=== PATIENT | female | born 1940 | race Caucasian/White ===

== ENCOUNTER → 2017-09-21 14:08 | Outpatient (CLI) | payer MEDICARE, OTHER ==
[~2017-09-21 14:08] MED LIST: ASPIRIN81 MG PO; ATARAX 25 MG TA25 MG PO; CO Q-10100 MG PO; CYCLOBENZAPRINE10 MG PO; DURAGESIC1 PATCH .1 TRANSDERM; EVENING PRIMROSE PO; FIORICET/ESGIC1 TAB; FIORICET/ESGIC1 TAB PO; ISOSORBIDE MONO30 M1 PO; LEVSIN/ANASP0.125 MG PO; LOVAZA1 G PO; LYRICA50 MG PO; MOBIC7.5 MG PO; MORPHINE SULFAT30 MG PO; MOVANTIK25 MG PO; NASONEX NASAL S17 GM NS; PLAVIX75 MG PO; SANTYL30 GM TP; VOLTAREN100 GM TOPICAL; XANAX1 MG PO; ZOFRAN4 MG PO
== END | disposition home or self-care (01) ==
LOC: D.US 09-15 08:00 → D.CT 09-15 09:00 → D.US 09-15 14:30 → D.CT 09-15 15:00 → D.US 14:08
DX: I65.23 Occlusion and stenosis of bilateral carotid arteries (principal)

== ENCOUNTER → 2018-06-04 14:36 | Outpatient (CLI) | payer MEDICARE, OTHER ==
[~2018-06-04 14:36] MED LIST changes: +AMITIZA24 MCG PO; +ASPIRIN325 MG PO; +DULCOLAX10 MG/SUPP RC; +FLORAJEN3 CAPS460 MG PO; +LISINOPRIL10 MG PO; +MS CONTIN15 MG PO; +MS CONTIN30 MG PO; +MULTI-DAY VITAM1 TAB PO; +PEPCID PO
== END | disposition home or self-care (01) ==
LOC: D.US 14:30
DX: M79.605 Pain in left leg (principal); M79.604 Pain in right leg

== ENCOUNTER 2018-06-10 17:05 | Inpatient (IN) | payer MEDICARE, OTHER ==
[~2018-06-10] VITALS: Ht 162.6 cm; Wt 43.5 kg
--- NOTE | ~2018-06-10 | MORECARE ---
CASE MANAGEMENT DISCHARGE SUMMARY PATIENT: HARPREET PATEL UNIT: [id number] ADM DATE: 06/10/18 AGE: 77 : 38 SEX: F ROOM/BED: D.2240 AUTHOR: CLARA,DOC PHYSICIAN: REFERRING PHYSICIAN: ZHANG HERNANDEZ MD DATE OF SERVICE: 06/12/18 Discharge Plan Patient Name: HARPREET PATEL Facility: [facility]:[place] : 1940 Planned Disposition: Inpatient Rehab Anticipated Discharge Date: 06/16/18 Discharge Date: Expected LOS: 6 Initial Reviewer: [email or web address] Initial Review Date: 06/12/2018 Generated: 06/12/18 3:39 pm Comments DCP- Discharge Planning Updated by [email or web address]: Staci John on 06/12/18 1:[address] Patient Name: HARPREET PATEL Admission Status: ER Accout number: [id number] Admission Date: 06-10-2018 : 1940 Admission Diagnosis: Attending: ZHANG HERNANDEZ Current LOS: 2 Anticipated DC Date: 06-16-2018 Planned Disposition: Inpatient Rehab Primary Insurance: MEDICARE A & B Discharge Planning Comments: CM met with patient and her friend, Maryann, to discuss discharge planning. She lives alone, is independent with all ADL's and IADL's. States she has a cane, walker, and nebulizer at home but does not currently use them. States she would like to go to inpatient rehab prior to returning home. I called Sameera in inpatient rehab and informed her. CM will continue to follow and assist with discharge planning/needs. Interlibrary Loan Specialist: Staci John DCPIA - Discharge Planning Initial Assessment Updated by [email or web address]: Staci John on 06/12/18 2:26 pm * Is the patient Alert and Oriented? Yes * How many steps to enter\exit or inside your home? 0/0 * PCP Dr. Hernandez * Pharmacy [facility] for immediate medications [facility] for maintenance medications * Preadmission Environment Home Alone * ADLs Independent * Equipment Cane Nebulizer Tub Bench Walker * List name and contact numbers for known caregivers / representatives who currently or will assist patient after discharge: Leti Solomon - friend - (medical POA) - [phone] call first Cristino Patel - son - [phone] * Verbal permission to speak to the caregivers and representatives has been obtained from the patient. Yes * Community resources currently utilized None * Additional services required to return to the preadmission environment? Yes * Can the patient safely return to the preadmission environment? No * Has this patient been hospitalized within the prior 30 days at any hospital? No Last DP export: 06/12/18 1:31 Patient Name: HARPREET PATEL Page [id number] at 1439 All edits/amendments must be made on the electronic document DICTATION DATE: 06/12/181438 REWARDS CONSULTANT: OSCAR 06/12/181438 RPT#: [id number] DC DATE: STATUS: ADM IN [facility] [address] [place] [address] END OF REPORT
--- NOTE | ~2018-06-10 | MORECARE ---
CASE MANAGEMENT DISCHARGE SUMMARY PATIENT: HARPREET PATEL UNIT: [id number] ADM DATE: 06/10/18 AGE: 77 : 38 SEX: F ROOM/BED: D.2240 AUTHOR: CLARA,DOC PHYSICIAN: REFERRING PHYSICIAN: ZHANG HERNANDEZ MD DATE OF SERVICE: 06/15/18 Discharge Plan Patient Name: HARPREET PATEL Facility: [facility]:[place] : 1940 Planned Disposition: Inpatient Rehab Anticipated Discharge Date: 06/16/18 Discharge Date: 06/15/2018 Expected LOS: 6 Initial Reviewer: [email or web address] Initial Review Date: 06/12/2018 Generated: 06/15/18 4:57 pm Comments DCP- Discharge Planning Updated by [email or web address]: Staci John on 06/15/18 12:[address] Received order for discharge. She agrees with discharge to inpatient rehab. I called her friends Maryann Solomon and Maris (left a message) and [facility] and primary nurse informed. CM will continue to follow and assist with discharge planning/needs. DCP- Discharge Planning Updated by [id number]: Staci John on 06/12/18 1:[address] Patient Name: HARPREET PATEL Admission Status: ER Accout number: [id number] Admission Date: 06-10-2018 : 1940 Admission Diagnosis: Attending: ZHANG HERNANDEZ Current LOS: 2 Anticipated DC Date: 06-16-2018 Planned Disposition: Inpatient Rehab Primary Insurance: MEDICARE A & B Discharge Planning Comments: CM met with patient and her friend, Maryann, to discuss discharge planning. She lives alone, is independent with all ADL's and IADL's. States she has a cane, walker, and nebulizer at home but does not currently use them. States she would like to go to inpatient rehab prior to returning home. I called Sameera in inpatient rehab and informed her. CM will continue to follow and assist with discharge planning/needs. Warp Tester: Staci John DCPIA - Discharge Planning Initial Assessment Updated by [email or web address]: Staci John on 06/12/18 2:26 pm * Is the patient Alert and Oriented? Yes * How many steps to enter\exit or inside your home? 0/0 * PCP Dr. Hernandez * [facility] for immediate medications [facility] for maintenance medications * Preadmission Environment Home Alone * ADLs Independent * Equipment Cane Nebulizer Tub Bench Walker * List name and contact numbers for known caregivers / representatives who currently or will assist patient after discharge: Leti Solomon - friend - (medical POA) - [phone] call first Cristino Patel - son - [phone] * Verbal permission to speak to the caregivers and representatives has been obtained from the patient. Yes * Community resources currently utilized None * Additional services required to return to the preadmission environment? Yes * Can the patient safely return to the preadmission environment? No * Has this patient been hospitalized within the prior 30 days at any hospital? No Coverage Notice Reviewer: [id number] Nicholas John Notice Issued Date-Time: 06/15/2018 13:03 Notice Type: IM Discharge Notice Notice Delivered To: Patient Relationship to Patient: Self Compo Conveyor Operator Name: Delivery Method: HAND - Hand Delivered Manda Days: Prior Verbal Notification: Recipient Understood Notice: Yes Recipient Signature: Yes Med Rec Note Co-signed by Attending: Coverage Notice Comment: IMM explained, signed, copy given, original placed in MR Last DP export: 06/15/18 12:12 Patient Name: HARPREET PATEL Page [id number] at 1557 All edits/amendments must be made on the electronic document DICTATION DATE: 06/15/181556 DELIVERY ASSISTANT: OSCAR 06/15/181556 RPT#: [id number] DC DATE:06/15/18 STATUS: DIS IN [facility] [address] [place] [address] END OF REPORT
--- NOTE | ~2018-06-10 | MORECARE ---
CASE MANAGEMENT DISCHARGE SUMMARY PATIENT: HARPREET PATEL UNIT: [id number] ADM DATE: 06/10/18 AGE: 77 : 38 SEX: F ROOM/BED: D.2240 AUTHOR: AB ELIZABETH PHYSICIAN: REFERRING PHYSICIAN: ZHANG HERNANDEZ MD DATE OF SERVICE: 06/12/18 Discharge Plan Patient Name: HARPREET PATEL [facility] [facility] 1940 Planned Disposition: Inpatient Rehab Anticipated Discharge Date: 06/16/18 Discharge Date: Expected LOS: 6 Initial Reviewer: [email or web address] Initial Review Date: 06/12/2018 Generated: 06/12/18 3:31 pm DCPIA - Discharge Planning Initial Assessment Updated by [email or web address]: Staci John on 06/12/18 2:26 pm * Is the patient Alert and Oriented? Yes * How many steps to enter\exit or inside your home? 0/0 * PCP Dr. Hernandez * [facility] for immediate medications [facility] for maintenance medications * Preadmission Environment Home Alone * ADLs Independent * Equipment Cane Nebulizer Tub Bench Walker * List name and contact numbers for known caregivers / representatives who currently or will assist patient after discharge: Leti Solomon - friend - (medical POA) - [phone] call first Cristino Patel - son - [phone] * Verbal permission to speak to the caregivers and representatives has been obtained from the patient. Yes * Community resources currently utilized None * Additional services required to return to the preadmission environment? Yes * Can the patient safely return to the preadmission environment? No * Has this patient been hospitalized within the prior 30 days at any hospital? No Patient Name: HARPREET PATEL Page [phone] at 1431 All edits/amendments must be made on the electronic document DICTATION DATE: 06/12/181429 CERTIFICATION OFFICER: OCSAR 06/12/18 143 RPT#: [id number] DC DATE: STATUS: ADM IN [facility] [address] [place] [address] END OF REPORT
--- NOTE | ~2018-06-10 | CN ---
PATIENT NAME:HARPREET PATEL MEDICAL RECORD: [id number] : 36 LOCATION:D.MS [address] ADMIT DATE: 06/10/18 ACCOUNT: [id number] CONSULTING PHYSICIAN: MARIAM MONTENEGRO MD REFERRING PHYSICIAN: RYAN HERNANDEZ MD DATE OF CONSULTATION: 06/11/2018 CONSULT REQUESTING PHYSICIAN: Ryan Hernandez MD REASON FOR CONSULTATION: COPD and fracture of right hip. HISTORY OF PRESENT ILLNESS: Ms. Patel is a 77-year-old female who is a smoker. She was told that she has COPD, but she has been never tested by pulmonary function test. She had a fall and fractured her right hip. REVIEW OF THE SYSTEMS: As in history of present illness. PAST MEDICAL HISTORY: 1. COPD. 2. Peripheral vascular disease. 3. Irritable bowel syndrome. 4. Osteoarthritis. 5. Osteopenia. 6. Anxiety. 7. Hysterectomy. PAST SURGICAL HISTORY: 1. Hysterectomy. 2. She had lumbar spinal surgery with spinal cord stimulator placement. 3. Bilateral carotid endarterectomy. 4. Right femoral bypass. 5. Left femoral bypass. ALLERGIES: SHE IS ALLERGIC TO OMEPRAZOLE, CIPRO, CYMBALTA, DILAUDID, LEVAQUIN, PAMELOR, AND DARVON. MEDICATIONS: [employer] was reviewed. PERSONAL AND SOCIAL HISTORY: The patient is still smoking half pack per day. She is smoking since the age of 8. She is nondrinker. FAMILY HISTORY: Noncontributory. PHYSICAL EXAMINATION: GENERAL: Now, the patient is lying comfortably in bed. She is not in acute distress. VITAL SIGNS: The blood pressure is 105/43, pulse is 65, respiration is 18, temperature 97.9, and SpO2 is 91% on room air. HEENT: Conjunctivae are pink. Sclerae are not icteric. NECK: Neck is supple. No JVD. CHEST: The chest excursion is minimal on both sides. No wheeze. No rales. HEART: Rhythm regular. Normal sound. No murmur. ABDOMEN: Abdomen is soft. Bowel sounds present. No hepatosplenomegaly. RECTAL: Deferred. EXTREMITIES: No cyanosis. No clubbing. No pedal edema. CONSULT REPORT [id number] HARPREET PATEL CENTRAL NERVOUS SYSTEM: The patient is awake and alert. There is no obvious cranial nerve abnormality. The gait was not tested. DIAGNOSTIC DATA: Chest radiograph; there are emphysematous changes. No acute infiltrates. IMPRESSION: 1. Acute hypoxic respiratory failure. The patient is on 2 liters oxygen. 2. COPD without exacerbation. 3. Tobacco dependence syndrome. 4. Right hip fracture. 5. Hypertension. RECOMMENDATIONS: 1. Start the nicotine patch. 2. Albuterol/ipratropium nebulizer p.r.n. 3. Check alpha-1 level. 4. We will check the ABG in the morning. 5. From pulmonary point of view, the patient has no absolute contraindication for her surgery. 6. DVT prophylaxis. Dr. Hernandez, thank you for involving me in the care of Ms. Patel. TRANSINT:[id number] Voice Confirmation ID: [id number] DOCUMENT ID: [id number] MARIAM MONTENEGRO MD at 1711 CC: [id number] DICTATION DATE: 06/11/182031 CIVIL ENGINEER'S AIDE: 06/12/18 0023 ADM IN [facility] [id number] [place] [address]
--- NOTE | ~2018-06-10 | MORECARE ---
CASE MANAGEMENT DISCHARGE SUMMARY PATIENT: HARPREET PATEL UNIT: [id number] ADM DATE: 06/10/18 AGE: 77 : 38 SEX: F ROOM/BED: D.2240 AUTHOR: CLARA,DOC PHYSICIAN: REFERRING PHYSICIAN: ZHANG HERNANDEZ MD DATE OF SERVICE: 06/15/18 Discharge Plan Patient Name: HARRPEET PATEL Facility: [facility]:[place] : 1940 Planned Disposition: Inpatient Rehab Anticipated Discharge Date: 06/16/18 Discharge Date: Expected LOS: 6 Initial Reviewer: [email or web address] Initial Review Date: 06/12/2018 Generated: 06/15/18 2:11 pm Comments DCP- Discharge Planning Updated by [email or web address]: Staci John on 06/15/18 12:[address] Received order for discharge. She agrees with discharge to inpatient rehab. I called her friends Maryann Solomon and Maris (left a message) and [facility] and primary nurse informed. CM will continue to follow and assist with discharge planning/needs. DCP- Discharge Planning Updated by [id number]: Staci John on 06/12/18 1:[address] Patient Name: HARPREET PATEL Admission Status: ER Accout number: [id number] Admission Date: 06-10-2018 : 1940 Admission Diagnosis: Attending: ZHANG HERNANDEZ Current LOS: 2 Anticipated DC Date: 06-16-2018 Planned Disposition: Inpatient Rehab Primary Insurance: MEDICARE A & B Discharge Planning Comments: CM met with patient and her friend, Maryann, to discuss discharge planning. She lives alone, is independent with all ADL's and IADL's. States she has a cane, walker, and nebulizer at home but does not currently use them. States she would like to go to inpatient rehab prior to returning home. I called Sameera in inpatient rehab and informed her. CM will continue to follow and assist with discharge planning/needs. Cut Off Saw Tender Metal: Staci John DCPIA - Discharge Planning Initial Assessment Updated by [id number]: Staci John on 06/12/18 2:26 pm * Is the patient Alert and Oriented? Yes * How many steps to enter\exit or inside your home? 0/0 * PCP Dr. Hernandez * [facility] for immediate medications [facility] for maintenance medications * Preadmission Environment Home Alone * ADLs Independent * Equipment Cane Nebulizer Tub Bench Walker * List name and contact numbers for known caregivers / representatives who currently or will assist patient after discharge: Letimayra Solomon - friend - (medical POA) - [phone] call first Cristino Patel - son - [phone] * Verbal permission to speak to the caregivers and representatives has been obtained from the patient. Yes * Community resources currently utilized None * Additional services required to return to the preadmission environment? Yes * Can the patient safely return to the preadmission environment? No * Has this patient been hospitalized within the prior 30 days at any hospital? No Coverage Notice Reviewer: [id number] Nicholas John Notice Issued Date-Time: 06/15/2018 13:03 Notice Type: IM Discharge Notice Notice Delivered To: Patient Relationship to Patient: Self Traffic Engineer Name: Delivery Method: HAND - Hand Delivered Manda Days: Prior Verbal Notification: Recipient Understood Notice: Yes Recipient Signature: Yes Med Rec Note Co-signed by Attending: Coverage Notice Comment: IMM explained, signed, copy given, original placed in MR Last DP export: 06/12/18 1:39 Patient Name: HARPREET PATEL Page [phone] at 1312 All edits/amendments must be made on the electronic document DICTATION DATE: 06/15/18 1311 EMERGENCY CREW SUPERVISOR: OSCAR 06/15/18 1311 RPT#: [id number] DC DATE: STATUS: ADM IN [facility] [address] [place] [address] END OF REPORT
[~2018-06-10 17:05] MED LIST changes: -AMITIZA24 MCG PO; -ASPIRIN325 MG PO; -DULCOLAX10 MG/SUPP RC; -FLORAJEN3 CAPS460 MG PO; -LISINOPRIL10 MG PO; -MS CONTIN15 MG PO; -MS CONTIN30 MG PO; -MULTI-DAY VITAM1 TAB PO; -PEPCID PO
[2018-06-10] MEDS ORDERED: MS CONTIN30 MG PO (17:17)
[2018-06-10] MEDS ORDERED: MULTI-DAY VITAM1 TAB PO (17:19)
[2018-06-10] MEDS ORDERED: ATARAX 25 MG TA25 MG PO (17:20)
[2018-06-10] MEDS ORDERED: LISINOPRIL10 MG PO (17:21)
[2018-06-10 18:19] LABS: BASOPHILS 0.1 % (0-2); EOSINOPHILS 0.8 % (0-7); HEMATOCRIT 39.7 % (36.0-48.0); HEMOGLOBIN 13.6 g/dL (12-16); IMMATURE GRANULOCYTES 0.3 % (0-5); LYMPHOCYTES 8.3 % (15-50); MCH 31.7 pg (26.0-34.0); MCHC 34.3 g/dL (31.0-37.0); MCV 92.5 fL (80.0-100.0); MEAN PLATELET VOLUME 8.8 fL (7.4-10.4); MONOCYTES 5.4 % (2-11); NEUTROPHILS 85.1 % (40-80); PLATELET COUNT 275 10x3/uL (130-400); RBC 4.29 10x6/uL (4.00-5.40); RDW 13.2 % (11.5-14.5); WBC 17.2 10x3/uL (4.8-10.8)
[2018-06-10 18:38] LABS: INR 0.93 (0.85-1.17)
[2018-06-10 18:51] LABS: ALBUMIN 3.1 g/dL (3.4-5.0); ANION GAP 10.3 mmol/L (8-16); BILIRUBIN - TOTAL 0.23 mg/dL (0.2-1.3); C-REACTIVE PROTEIN 1.1 mg/dL (0.0-0.9); CALCIUM 9.2 mg/dL (8.5-10.1); CARBON DIOXIDE 30.2 mmol/L (21.0-32.0); POTASSIUM - SERUM 5.5 mmol/L (3.5-5.1); PROTEIN - SERUM 6.4 g/dL (6.4-8.2)
[2018-06-10 19:58] LABS: APPEARANCE CLEAR (CLEAR); BILIRUBIN NEGATIVE (NEGATIVE); COLOR STRAW (YELLOW); GLUCOSE NEGATIVE (NEGATIVE); KETONE NEGATIVE (NEGATIVE); NITRITE POSITIVE (NEGATIVE); PROTEIN NEGATIVE (NEGATIVE); SPECIFIC GRAVITY 1.005 (1.005-1.020); UROBILINOGEN NORMAL (NORMAL)
[2018-06-10 20:00] LABS: RED CELLS - URINE 0-5 /hpf (0-5)
[2018-06-10 20:01] LABS: AMORPHOUS SEDIMENT <1+ /lpf (NONE SEEN); BACTERIA MODERATE /hpf (NONE SEEN); WHITE CELLS - URINE 0-5 /hpf (0-5)
[2018-06-11] VITALS (7 sets, daily range): BP systolic 92–148; BP diastolic 39–73; Ht 162.6 cm; Wt 43.5 kg
[2018-06-11 05:14] LABS: BASOPHILS 0.4 % (0-2); EOSINOPHILS 7.7 % (0-7); IMMATURE GRANULOCYTES 0.4 % (0-5); LYMPHOCYTES 24.2 % (15-50); MCH 30.7 pg (26.0-34.0); MCHC 32.8 g/dL (31.0-37.0); MCV 93.7 fL (80.0-100.0); MEAN PLATELET VOLUME 9.1 fL (7.4-10.4); MONOCYTES 8.1 % (2-11); NEUTROPHILS 59.2 % (40-80); PLATELET COUNT 277 10x3/uL (130-400); RDW 13.4 % (11.5-14.5)
[2018-06-11 05:18] LABS: HEMATOCRIT 31.4 % (36.0-48.0); HEMOGLOBIN 10.3 g/dL (12-16); RBC 3.35 10x6/uL (4.00-5.40); WBC 8.2 10x3/uL (4.8-10.8)
[2018-06-11 05:21] LABS: ANION GAP 8.9 mmol/L (8-16); CALCIUM 7.6 mg/dL (8.5-10.1); CARBON DIOXIDE 28.4 mmol/L (21.0-32.0); CREATININE - SERUM 0.8 mg/dL (0.6-1.3)
[2018-06-11 05:24] LABS: POTASSIUM - SERUM 4.3 mmol/L (3.5-5.1)
[2018-06-12 00:18] VITALS: BP 174/74
[2018-06-12 04:29] VITALS: BP 115/55
[2018-06-12 05:20] LABS: BASOPHILS 0.1 % (0-2); EOSINOPHILS 10.1 % (0-7); HEMATOCRIT 30.8 % (36.0-48.0); IMMATURE GRANULOCYTES 0.3 % (0-5); LYMPHOCYTES 29.3 % (15-50); MCH 30.6 pg (26.0-34.0); MCHC 32.5 g/dL (31.0-37.0); MCV 94.2 fL (80.0-100.0); MEAN PLATELET VOLUME 9.1 fL (7.4-10.4); MONOCYTES 9.3 % (2-11); NEUTROPHILS 50.9 % (40-80); PLATELET COUNT 270 10x3/uL (130-400); RBC 3.27 10x6/uL (4.00-5.40); RDW 13.4 % (11.5-14.5); WBC 7.1 10x3/uL (4.8-10.8)
[2018-06-12 05:54] LABS: ALKALINE PHOSPHATASE 58 U/L (46-116); ALT (SGPT) 18 U/L (10-68); BILIRUBIN - TOTAL 0.12 mg/dL (0.2-1.3); CALCIUM 7.2 mg/dL (8.5-10.1); CHLORIDE - SERUM 103 mmol/L (98-107); CREATININE - SERUM 0.7 mg/dL (0.6-1.3); GLUCOSE 94 mg/dL (74-106); SODIUM 136 mmol/L (136-145); eGFR NON AFRICAN AMERICAN 85 mL/min (90-120)
[2018-06-12 06:39] LABS: ALBUMIN 1.9 g/dL (3.4-5.0); CALC OSMOLALITY 270 mosm/kg (275-300); PROTEIN - SERUM 4.6 g/dL (6.4-8.2); UREA NITROGEN 10 mg/dL (7-18)
[2018-06-12 06:40] LABS: POTASSIUM - SERUM 2.9 mmol/L (3.5-5.1)
[2018-06-12 08:10] VITALS: BP 130/53
[2018-06-12 12:45] VITALS: BP 144/59
[2018-06-12 17:52] VITALS: BP 141/60
[2018-06-12 21:23] VITALS: BP 106/67
[2018-06-13] VITALS (11 sets, daily range): BP systolic 113–167; BP diastolic 33–74
[2018-06-13 14:53] LABS: CALCIUM 7.2 mg/dL (8.5-10.1); CARBON DIOXIDE 24.1 mmol/L (21.0-32.0); CHLORIDE - SERUM 106 mmol/L (98-107); CREATININE - SERUM 0.7 mg/dL (0.6-1.3); GLUCOSE 101 mg/dL (74-106); SODIUM 136 mmol/L (136-145); eGFR NON AFRICAN AMERICAN 85 mL/min (90-120)
[2018-06-13 15:02] LABS: CALC OSMOLALITY 269 mosm/kg (275-300); POTASSIUM - SERUM 4.2 mmol/L (3.5-5.1); UREA NITROGEN 7 mg/dL (7-18)
[2018-06-13 21:27] LABS: BASOPHILS 0.2 % (0-2); EOSINOPHILS 0.1 % (0-7); HEMATOCRIT 34.4 % (36.0-48.0); HEMOGLOBIN 11.7 g/dL (12-16); IMMATURE GRANULOCYTES 0.3 % (0-5); LYMPHOCYTES 8.4 % (15-50); MCH 31.4 pg (26.0-34.0); MEAN PLATELET VOLUME 9.6 fL (7.4-10.4); MONOCYTES 5.1 % (2-11); NEUTROPHILS 85.9 % (40-80); RBC 3.73 10x6/uL (4.00-5.40); RDW 13.5 % (11.5-14.5)
[2018-06-13 21:31] LABS: MCV 92.2 fL (80.0-100.0); PLATELET COUNT 207 10x3/uL (130-400); WBC 11.9 10x3/uL (4.8-10.8)
[2018-06-14 01:05] VITALS: BP 120/66
[2018-06-14 06:35] VITALS: BP 115/71
[2018-06-14 08:15] VITALS: BP 118/56
[2018-06-14 09:39] LABS: ALKALINE PHOSPHATASE 65 U/L (46-116); ALT (SGPT) 17 U/L (10-68); BILIRUBIN - TOTAL 0.14 mg/dL (0.2-1.3); CALC OSMOLALITY 272 mosm/kg (275-300); CALCIUM 7.4 mg/dL (8.5-10.1); CARBON DIOXIDE 25.8 mmol/L (21.0-32.0); CHLORIDE - SERUM 104 mmol/L (98-107); CREATININE - SERUM 0.7 mg/dL (0.6-1.3); GLUCOSE 116 mg/dL (74-106); POTASSIUM - SERUM 3.9 mmol/L (3.5-5.1); SODIUM 137 mmol/L (136-145); UREA NITROGEN 8 mg/dL (7-18); eGFR NON AFRICAN AMERICAN 85 mL/min (90-120)
[2018-06-14 11:17] VITALS: BP 106/51
[2018-06-14 16:02] VITALS: BP 121/53
[2018-06-14 21:55] VITALS: BP 139/78
[2018-06-15 05:48] VITALS: BP 130/71
[2018-06-15 08:17] VITALS: BP 118/43
[2018-06-15 12:17] VITALS: BP 129/58
[2018-06-15] MEDS ORDERED: MS CONTIN15 MG PO (12:34)
[2018-06-15] MEDS ORDERED: ASPIRIN325 MG PO (12:34)
[2018-06-15] MEDS ORDERED: PEPCID PO (12:35)
[2018-06-15] MEDS ORDERED: AMITIZA24 MCG PO (12:35)
[2018-06-15] MEDS ORDERED: FLORAJEN3 CAPS460 MG PO (12:35)
[2018-06-15] MEDS ORDERED: DULCOLAX10 MG/SUPP RC (12:36)
== END 2018-06-15 14:40 | DRG 480 ==
LOC: D.ER 17:05 → D.MS 18:59 → D.EDHOLD 18:59 → D.MS 19:42
PROVIDERS: Anesthesiology; Family Medicine; Orthopaedic Surgery
PROC: 0QS604Z Reposition Right Upper Femur with Internal Fixation Device, Open Approach (ICD-10-PCS; principal; 2018-06-13 12:00)
DX: S72.111A Displaced fracture of greater trochanter of right femur, initial encounter for closed fracture (principal); J96.91 Respiratory failure, unspecified with hypoxia; N39.0 Urinary tract infection, site not specified; Z68.1 Body mass index [BMI] 19.9 or less, adult; W19.XXXA Unspecified fall, initial encounter; E11.51 Type 2 diabetes mellitus with diabetic peripheral angiopathy without gangrene; K58.9 Irritable bowel syndrome, unspecified; M19.90 Unspecified osteoarthritis, unspecified site; M85.80 Other specified disorders of bone density and structure, unspecified site; I10 Essential (primary) hypertension; E87.6 Hypokalemia

== ENCOUNTER 2018-06-15 12:37 | Inpatient (IN) | payer MEDICARE, OTHER ==
[~2018-06-15] VITALS: Ht 162.6 cm; Wt 43.5 kg
--- NOTE | ~2018-06-15 | RHP ---
PATIENT: HARPREET PATEL MEDICAL RECORD: [id number] ACCOUNT: [id number] LOCATION:[facility] : [birth year] ADMISSION DATE: 06/15/18 REHABILITATION HISTORY AND PHYSICAL EXAMINATION POST ADMISSION PHYSICIAN EXAMINATION DATE OF ADMISSION: 06/15/2018 ADMITTING DIAGNOSES: Open reduction and internal fixation, status post right greater trochanteric fracture. HISTORY OF PRESENT ILLNESS: The patient is an elderly female who is admitted with a right greater trochanteric fracture, 77-year-old female, who came to the ED falling after getting her Monday paper from her dog, apparently jumped up on her. She lost her balance. She crawled to the bedroom, was able to get herself up, but felt a crack and was unable to bear weight on her right lower extremity. She called EMS. She was seen and evaluated. CT of her hip showed a right great trochanteric fracture, a small subcutaneous hematoma. She is a former smoker and has history of COPD. She underwent an ORIF of the right hip on 06/13/2018. She had some complications during her acute hospital stay including hypoxic respiratory failure. She has been followed by pulmonary. She has had some increased postop pain and impaired mobility requiring supplemental O2 nonweightbearing to her right lower extremity at this time. She is on IV antibiotics. She does live alone. She does suffer from some self-care deficits at this time. These are all barriers for discharge home at this time. She was completely independent with her mobility and ADLs prior to coming to the hospital. She is currently requiring setup to total assist for ADLs, max assist to total assist for mobility. Plans to return home and get back to her prior level of function or as close to that as possible and then she will also have home health. COMORBIDITIES: Include acute hypoxic respiratory failure, tobacco use, right hip fracture, hypertension, peripheral vascular disease, constipation, osteoarthritis, chronic low back pain, anxiety, and acute fracture. PAST MEDICAL HISTORY: Significant for COPD, peripheral vascular disease, irritable bowel syndrome, osteoarthritis, osteopenia, anxiety, hysterectomy, numbness to her hands or neuropathy, carotid stenosis, arthritis, chronic back pain and tobacco use. PAST SURGICAL HISTORY: Includes hysterectomy. She has had lumbar surgery with a spinal cord stimulator placement. She has had bilateral carotid endarterectomy, right femoral bypass, and left femoral bypass. ALLERGIES: PRILOSEC, CIPRO, CYMBALTA, DILAUDID, LEVAQUIN, PAMELOR AND DARVON. CURRENT MEDICATIONS: Include Levsin 0.125 mg t.i.d. p.r.n., isosorbide 30 mg daily, lisinopril 10 mg b.i.d., Xanax 1 mg at bedtime, aspirin 325 mg b.i.d., Fioricet 1 tab t.i.d. p.r.n. headaches, Mobic 7.5 mg b.i.d., morphine sulfate 15 mg 1 p.o. b.i.d. p.r.n. She is on Lyrica 50 mg b.i.d. She is on Dulcolax suppositories p.r.n. constipation, Amitiza 24 mcg b.i.d., Zofran 4 mg daily and Pepcid 20 mg b.i.d. HABITS: Does have a history of tobacco use. HISTORY AND PHYSICAL [id number] HARPREET PATEL FAMILY HISTORY: Noncontributory. SOCIAL HISTORY: The patient wants to return back home and get back to her prior level of functioning. REVIEW OF SYSTEMS: GENERAL: Does complain of weakness and fatigue. HEENT: Denies cold, cough, or congestion. CARDIOVASCULAR: Denies chest pain. PHYSICAL EXAMINATION: VITAL SIGNS: Stable, afebrile. GENERAL: Elderly female, in no acute distress on exam. HEENT: Normocephalic and atraumatic. Mucosa moist. NECK: Supple without adenopathy. LUNGS: Clear at this time. HEART: Regular rate and rhythm. ABDOMEN: Benign. EXTREMITIES: No clubbing, cyanosis or edema, postop area appears to be normal. NEUROLOGIC: She does have noted weakness. LABORATORY DATA: White count 11.9, H&H of 11 and 34 and platelet count is noted to be 207. Admit chemistry showed a sodium 137, potassium 3.9, BUN and creatinine of 8 and 0.7, blood sugar is 116. Her admit UA does show nitrites and also blood, and trace leukocyte esterase. ASSESSMENT: This is a 77-year-old female patient admitted to rehab with a working diagnosis of right hip fracture and also noted to have incidental urinary tract infection. The patient has potential to make improvement. We instituted the following multidisciplinary therapies include, but not limited to physical, occupational, respiratory, speech, nutritional services, prosthetics and orthotics. Given her complex medical condition and risk for more complications, rehabilitation services cannot be provided at a low level of care such as skilled nurse facility. PLAN: 1. Admit to [facility] for intensive inpatient therapy to include the following disciplines: A. Physical therapy to improve gait, all transfer skills and bed mobility to a modified independent level. B. Occupational therapy to improve activities of daily living to a modified independent level. C. Case management to assist with discharge planning and placement options. D. Nutrition to assist with nutritional needs. E. Rehabilitation nursing to assist in monitoring the patient's underlying medical conditions and to assist with any type of bowel or bladder management. 2. The patient's current medication and medical care will be continued. 3. The patient will be placed on standard fall precautions. 4. The patient's estimated length of stay is approximately 7-10 days. 5. We will repeat her UA. This was done on the to make sure that she does indeed have a urinary tract infection before I treat them. We will follow up in the a.m. TRANSINT:[id number] Voice Confirmation ID: [id number] DOCUMENT ID: [id number] HISTORY AND PHYSICAL [id number] HARPREET PATEL notes whether there has been none or any medical/functional change since admission: - No change since preadmission screen. DARIN attests patient continues to be appropriate for IRF: - Continues to be appropriate. ESCOBAR CAO MD at 1538 CC: [id number] DICTATION DATE: 06/15/18 1604 MUFFLE WORKER: 06/15/182011 ADM IN [facility] [address] [place] [address]
[~2018-06-15 12:37] MED LIST changes: +AMITIZA24 MCG PO; +ASPIRIN325 MG PO; +DULCOLAX10 MG/SUPP RC; +FLORAJEN3 CAPS460 MG PO; +LISINOPRIL10 MG PO; +MS CONTIN15 MG PO; +MS CONTIN30 MG PO; +MULTI-DAY VITAM1 TAB PO; +PEPCID PO
[2018-06-15 15:50] VITALS: BP 130/58; BMI 16.5
[2018-06-15 19:00] VITALS: BP 125/56
[2018-06-16 06:31] LABS: BASOPHILS 0.2 % (0-2); EOSINOPHILS 8.5 % (0-7); HEMATOCRIT 34.5 % (36.0-48.0); HEMOGLOBIN 11.3 g/dL (12-16); IMMATURE GRANULOCYTES 0.4 % (0-5); LYMPHOCYTES 13.8 % (15-50); MCH 30.8 pg (26.0-34.0); MCHC 32.8 g/dL (31.0-37.0); MEAN PLATELET VOLUME 8.7 fL (7.4-10.4); MONOCYTES 9.5 % (2-11); NEUTROPHILS 67.6 % (40-80); RBC 3.67 10x6/uL (4.00-5.40); WBC 13.7 10x3/uL (4.8-10.8)
[2018-06-16 06:34] LABS: PLATELET COUNT 270 10x3/uL (130-400)
[2018-06-16 07:08] LABS: CALC OSMOLALITY 268 mosm/kg (275-300); CALCIUM 7.8 mg/dL (8.5-10.1); CARBON DIOXIDE 24.2 mmol/L (21.0-32.0); CHLORIDE - SERUM 105 mmol/L (98-107); CREATININE - SERUM 0.6 mg/dL (0.6-1.3); GLUCOSE 79 mg/dL (74-106); POTASSIUM - SERUM 4.3 mmol/L (3.5-5.1); SODIUM 136 mmol/L (136-145); UREA NITROGEN 8 mg/dL (7-18); eGFR NON AFRICAN AMERICAN > 90 mL/min (90-120)
[2018-06-16 08:00] VITALS: BP 130/51
[2018-06-16 09:58] VITALS: Ht 162.6 cm; Wt 43.5 kg
[2018-06-16 14:20] LABS: APPEARANCE CLOUDY (CLEAR); BILIRUBIN NEGATIVE (NEGATIVE); COLOR YELLOW (YELLOW); GLUCOSE NEGATIVE (NEGATIVE); KETONE NEGATIVE (NEGATIVE); NITRITE NEGATIVE (NEGATIVE); PROTEIN TRACE mg/dL (NEGATIVE); UROBILINOGEN NORMAL (NORMAL)
[2018-06-16 14:22] LABS: BACTERIA FEW /hpf (NONE SEEN); EPITHELIAL CELLS 0-5 /hpf (0-5); RED CELLS - URINE 0-5 /hpf (0-5)
[2018-06-17 00:03] VITALS: BP 125/53
[2018-06-17 09:00] VITALS: BP 125/47
[2018-06-17 19:30] VITALS: BP 124/61
[2018-06-18 16:32] VITALS: BP 105/79
[2018-06-19 00:32] VITALS: BP 144/57
[2018-06-19 08:15] VITALS: BP 147/59
[2018-06-19 21:55] VITALS: BP 147/67
[2018-06-20 06:30] LABS: BASOPHILS 0.3 % (0-2); EOSINOPHILS 8.5 % (0-7); HEMATOCRIT 32.1 % (36.0-48.0); HEMOGLOBIN 10.5 g/dL (12-16); IMMATURE GRANULOCYTES 0.6 % (0-5); LYMPHOCYTES 26.9 % (15-50); MCH 30.9 pg (26.0-34.0); MCHC 32.7 g/dL (31.0-37.0); MCV 94.4 fL (80.0-100.0); MEAN PLATELET VOLUME 8.5 fL (7.4-10.4); MONOCYTES 11.8 % (2-11); NEUTROPHILS 51.9 % (40-80); RDW 14.2 % (11.5-14.5); WBC 6.9 10x3/uL (4.8-10.8)
[2018-06-20 06:32] LABS: PLATELET COUNT 366 10x3/uL (130-400)
[2018-06-20 06:37] LABS: CALCIUM 8.2 mg/dL (8.5-10.1); CARBON DIOXIDE 29.4 mmol/L (21.0-32.0); CREATININE - SERUM 0.6 mg/dL (0.6-1.3); GLUCOSE 83 mg/dL (74-106); UREA NITROGEN 9 mg/dL (7-18); eGFR NON AFRICAN AMERICAN > 90 mL/min (90-120)
[2018-06-20 07:00] LABS: CALC OSMOLALITY 276 mosm/kg (275-300); CHLORIDE - SERUM 105 mmol/L (98-107); POTASSIUM - SERUM 3.7 mmol/L (3.5-5.1); SODIUM 140 mmol/L (136-145)
[2018-06-20 08:00] VITALS: BP 129/54
[2018-06-20 19:00] VITALS: BP 124/48
[2018-06-21 07:59] VITALS: BP 129/40
[2018-06-21 19:00] VITALS: BP 116/80
[2018-06-22 06:10] LABS: BASOPHILS 0.3 % (0-2); EOSINOPHILS 5.7 % (0-7); HEMOGLOBIN 9.8 g/dL (12-16); IMMATURE GRANULOCYTES 0.3 % (0-5); LYMPHOCYTES 21.6 % (15-50); MCH 30.5 pg (26.0-34.0); MCHC 32.7 g/dL (31.0-37.0); MCV 93.5 fL (80.0-100.0); MEAN PLATELET VOLUME 8.6 fL (7.4-10.4); MONOCYTES 9.9 % (2-11); NEUTROPHILS 62.2 % (40-80); PLATELET COUNT 428 10x3/uL (130-400); RBC 3.21 10x6/uL (4.00-5.40); WBC 10.3 10x3/uL (4.8-10.8)
[2018-06-22 06:59] LABS: ANION GAP 10.2 mmol/L (8-16); CALCIUM 7.7 mg/dL (8.5-10.1); CARBON DIOXIDE 29.8 mmol/L (21.0-32.0)
[2018-06-22 07:00] LABS: CREATININE - SERUM 0.8 mg/dL (0.6-1.3)
[2018-06-22 08:00] VITALS: BP 125/57
[2018-06-22 19:44] VITALS: BP 157/62
[2018-06-23 08:00] VITALS: BP 94/40
[2018-06-23 20:31] VITALS: BP 124/69; BP 92/48
[2018-06-24 13:39] VITALS: BP 98/40
[2018-06-24 19:40] VITALS: BP 110/54
[2018-06-24 21:08] VITALS: BP 107/55
[2018-06-25 06:21] LABS: BASOPHILS 0.1 % (0-2); EOSINOPHILS 4.1 % (0-7); IMMATURE GRANULOCYTES 0.4 % (0-5); LYMPHOCYTES 8.5 % (15-50); MCH 31.3 pg (26.0-34.0); MCHC 33.3 g/dL (31.0-37.0); MCV 93.8 fL (80.0-100.0); MEAN PLATELET VOLUME 8.7 fL (7.4-10.4); MONOCYTES 7.2 % (2-11); NEUTROPHILS 79.7 % (40-80); PLATELET COUNT 383 10x3/uL (130-400); RBC 2.88 10x6/uL (4.00-5.40); RDW 14.4 % (11.5-14.5); WBC 19.1 10x3/uL (4.8-10.8)
[2018-06-25 06:33] LABS: CALC OSMOLALITY 271 mosm/kg (275-300); CALCIUM 7.2 mg/dL (8.5-10.1); CARBON DIOXIDE 26.8 mmol/L (21.0-32.0); CHLORIDE - SERUM 102 mmol/L (98-107); CREATININE - SERUM 0.7 mg/dL (0.6-1.3); GLUCOSE 81 mg/dL (74-106); POTASSIUM - SERUM 3.6 mmol/L (3.5-5.1); SODIUM 136 mmol/L (136-145); UREA NITROGEN 14 mg/dL (7-18); eGFR NON AFRICAN AMERICAN 85 mL/min (90-120)
[2018-06-25 08:25] VITALS: BP 145/63
[2018-06-25 19:44] VITALS: BP 124/58
[2018-06-26 06:25] LABS: BASOPHILS 0.1 % (0-2); EOSINOPHILS 6.1 % (0-7); HEMATOCRIT 29.6 % (36.0-48.0); HEMOGLOBIN 9.8 g/dL (12-16); IMMATURE GRANULOCYTES 0.2 % (0-5); MCHC 33.1 g/dL (31.0-37.0); MCV 93.7 fL (80.0-100.0); MEAN PLATELET VOLUME 8.6 fL (7.4-10.4); NEUTROPHILS 77.6 % (40-80); PLATELET COUNT 359 10x3/uL (130-400); RBC 3.16 10x6/uL (4.00-5.40); RDW 14.1 % (11.5-14.5)
[2018-06-26 06:27] LABS: WBC 13.8 10x3/uL (4.8-10.8)
[2018-06-26 06:40] LABS: CALC OSMOLALITY 272 mosm/kg (275-300); CALCIUM 7.5 mg/dL (8.5-10.1); CARBON DIOXIDE 27.7 mmol/L (21.0-32.0); CHLORIDE - SERUM 102 mmol/L (98-107); CREATININE - SERUM 0.7 mg/dL (0.6-1.3); GLUCOSE 86 mg/dL (74-106); SODIUM 137 mmol/L (136-145); UREA NITROGEN 13 mg/dL (7-18); eGFR NON AFRICAN AMERICAN 85 mL/min (90-120)
[2018-06-26 08:00] VITALS: BP 116/51
[2018-06-26 20:00] VITALS: BP 134/55
[2018-06-27 08:00] VITALS: BP 107/47
[2018-06-27 19:00] VITALS: BP 130/57
[2018-06-28 08:00] VITALS: BP 112/57
[2018-06-29 02:29] VITALS: BP 154/59
[2018-06-29 06:59] LABS: BASOPHILS 0.1 % (0-2); HEMATOCRIT 29.9 % (36.0-48.0); HEMOGLOBIN 9.9 g/dL (12-16); IMMATURE GRANULOCYTES 0.3 % (0-5); LYMPHOCYTES 7.2 % (15-50); MCH 30.8 pg (26.0-34.0); MCHC 33.1 g/dL (31.0-37.0); MCV 93.1 fL (80.0-100.0); MEAN PLATELET VOLUME 9.1 fL (7.4-10.4); MONOCYTES 12.1 % (2-11); NEUTROPHILS 75.3 % (40-80); PLATELET COUNT 391 10x3/uL (130-400); RBC 3.21 10x6/uL (4.00-5.40); RDW 13.9 % (11.5-14.5); WBC 15.7 10x3/uL (4.8-10.8)
[2018-06-29 08:00] VITALS: BP 106/57
[2018-06-29] MEDS ORDERED: NORCO-10 PO (08:23)
[2018-06-29 08:31] LABS: CALC OSMOLALITY 274 mosm/kg (275-300); CALCIUM 7.7 mg/dL (8.5-10.1); CARBON DIOXIDE 28.3 mmol/L (21.0-32.0); CHLORIDE - SERUM 101 mmol/L (98-107); CREATININE - SERUM 0.7 mg/dL (0.6-1.3); GLUCOSE 74 mg/dL (74-106); POTASSIUM - SERUM 3.8 mmol/L (3.5-5.1); SODIUM 138 mmol/L (136-145); UREA NITROGEN 12 mg/dL (7-18); eGFR NON AFRICAN AMERICAN 85 mL/min (90-120)
[2018-06-29] MEDS ORDERED: MS CONTIN15 MG PO (09:04)
== END 2018-06-29 13:00 | disposition home health service (06) | DRG 559 ==
LOC: D.REHAB 12:37
PROVIDERS: Emergency Medicine
DX: S72.111D Displaced fracture of greater trochanter of right femur, subsequent encounter for closed fracture with routine healing (principal); J96.01 Acute respiratory failure with hypoxia; J44.1 Chronic obstructive pulmonary disease with (acute) exacerbation; W19.XXXD Unspecified fall, subsequent encounter; F17.200 Nicotine dependence, unspecified, uncomplicated; I10 Essential (primary) hypertension; I73.9 Peripheral vascular disease, unspecified; K59.00 Constipation, unspecified; M19.90 Unspecified osteoarthritis, unspecified site; M54.5 Low back pain; F41.9 Anxiety disorder, unspecified; G89.29 Other chronic pain; K58.9 Irritable bowel syndrome, unspecified

== ENCOUNTER 2018-08-21 15:29 | Emergency (ER) | payer MEDICARE, OTHER ==
[~2018-08-21] VITALS: Ht 162.6 cm; Wt 48.2 kg
[~2018-08-21 15:29] MED LIST changes: +NORCO-10 PO
[2018-08-21 15:55] VITALS: Ht 162.6 cm; Wt 48.2 kg
[2018-08-21 17:36] LABS: APTT 21.1 SECONDS (22.8-39.4); INR 0.84 (0.85-1.17)
[2018-08-21 17:58] VITALS: BP 141/62
[2018-08-21 18:30] LABS: ALBUMIN 3.7 g/dL (3.4-5.0); ALKALINE PHOSPHATASE 112 U/L (46-116); ALT (SGPT) 21 U/L (10-68); BILIRUBIN - TOTAL 0.34 mg/dL (0.2-1.3); CARBON DIOXIDE 24.2 mmol/L (21.0-32.0); CKMB 3.5 U/L (0.0-3.6); CREATINE KINASE 147 UL (21-215); GLUCOSE 75 mg/dL (74-106); PRO BNP 391 pg/mL (0-450); PROTEIN - SERUM 7.6 g/dL (6.4-8.2); UREA NITROGEN 24 mg/dL (7-18)
[2018-08-21 19:04] LABS: CALC OSMOLALITY 274 mosm/kg (275-300); CREATININE - SERUM 0.9 mg/dL (0.6-1.3); SODIUM 136 mmol/L (136-145); eGFR NON AFRICAN AMERICAN 64 mL/min (90-120)
[2018-08-21 19:05] LABS: CHLORIDE - SERUM 97 mmol/L (98-107); POTASSIUM - SERUM 5.8 mmol/L (3.5-5.1)
[2018-08-21 19:06] LABS: TROPONIN-I 0.097 ng/mL (0.000-0.060)
== END 2018-08-21 17:59 | disposition home or self-care (01) ==
LOC: D.ER 15:29
PROVIDERS: Emergency Medicine
DX: R06.00 Dyspnea, unspecified (principal)

== ENCOUNTER → 2018-10-26 14:02 | Outpatient (CLI) | payer MEDICARE, OTHER ==
[2018-08-21 15:55] VITALS: BMI 18.2
== END | disposition home or self-care (01) ==
LOC: D.CT 14:02
PROVIDERS: ATTEND Clinical Nurse Specialist Family Health
DX: M54.5 Low back pain (principal)

== ENCOUNTER → 2018-11-01 14:06 | Outpatient (CLI) | payer MEDICARE, OTHER ==
[2018-08-21 15:55] VITALS: BMI 18.2
== END | disposition home or self-care (01) ==
LOC: D.US 10:30
PROVIDERS: ATTEND Internal Medicine Cardiovascular Disease
DX: I65.21 Occlusion and stenosis of right carotid artery (principal); I73.9 Peripheral vascular disease, unspecified

== ENCOUNTER 2018-11-15 06:09 | Outpatient (CLI) | payer MEDICARE, OTHER ==
[~2018-11-15] VITALS: Ht 162.6 cm; Wt 45.0 kg
[2018-11-15 06:54] LABS: CREATININE - SERUM 0.8 mg/dL (0.6-1.3)
[2018-11-15 07:22] VITALS: BP 170/75; Ht 162.6 cm; Wt 45.0 kg
--- NOTE | 2018-11-15 12:55 | NUR ---
REC'D PT FROM CT VIA WC. RECONNECTED TO NS INFUSION AT 150CC/HR X4 HRS. REGULAR TRAY ORDERED FOR PT. AMBULATES TO BATHROOM WITHOUT DIFFICULTY. ORANGE JUICE BROUGHT TO PATIENT.
--- NOTE | 2018-11-15 13:25 | NUR ---
TOLERATED REGULAR DIET. DENIES NEEDS. IV INFUSING WITHOUT DIFFICULTY. SPOKE WITH EMILY RIOS RN REGARDING PATIENT DISCHARGING AT COMPLETION OF INFUSION. CONFIRMED SHE COULD BE DC'D AFTER INFUSION.
--- NOTE | 2018-11-15 13:55 | NUR ---
LYING IN BED. NO CHANGES. DENIES NEEDS. CL WITHIN REACH.
--- NOTE | 2018-11-15 14:55 | NUR ---
IV INFUSING WITHOUT DIFFICULTY. DENIES NEEDS.
--- NOTE | 2018-11-15 15:55 | NUR ---
OFFERED TO GET PATIENT SOMETHING TO DRINK. DENIES NEEDS.
--- NOTE | 2018-11-15 16:55 | NUR ---
INFUSION COMPLETED. IV DC'D WITH CATHETER INTACT.
--- NOTE | 2018-11-15 17:20 | NUR ---
WRITTEN AND VERBAL DC INST. GIVEN TO PT. VERBALIZED UNDERSTANDING. CALLING FOR TRANSPORTATION.
--- NOTE | 2018-11-15 17:50 | NUR ---
DC'D HOME WITH FRIEND VIA PRIVATE VEHICLE. TAKEN TO VEHICLE VIA WC. STABLE AT TIME OF DC.
== END 2018-11-15 17:50 | disposition home or self-care (01) ==
LOC: D.OPS 06:09
PROVIDERS: ATTEND Internal Medicine Cardiovascular Disease
DX: I73.9 Peripheral vascular disease, unspecified (principal); L98.499 Non-pressure chronic ulcer of skin of other sites with unspecified severity

== ENCOUNTER → 2019-05-02 13:34 | Outpatient (CLI) | payer MEDICARE, OTHER ==
[2018-11-15 07:22] VITALS: BMI 17.0
== END | disposition home or self-care (01) ==
LOC: D.US 04-30 13:30
PROVIDERS: ATTEND Internal Medicine Cardiovascular Disease
DX: I65.23 Occlusion and stenosis of bilateral carotid arteries (principal)

== ENCOUNTER → 2020-05-04 13:37 | Outpatient (CLI) | payer MEDICARE, OTHER ==
[2018-11-15 07:22] VITALS: BMI 17.0
== END | disposition home or self-care (01) ==
LOC: D.US 04-27 08:30
PROVIDERS: ATTEND Internal Medicine Cardiovascular Disease
DX: I65.23 Occlusion and stenosis of bilateral carotid arteries (principal)

== ENCOUNTER 2020-10-08 09:54 | Inpatient (IN) | payer MEDICARE, OTHER ==
[2020-10-08] VITALS (17 sets, daily range): BP systolic 69–130; BP diastolic 41–61; BMI 17.2
[~2020-10-08] VITALS: Ht 162.6 cm; Wt 51.0 kg
[2020-10-08 10:40] LABS: BASOPHILS 0.2 % (0-2); EOSINOPHILS 1.5 % (0-7); HEMATOCRIT 34.5 % (36.0-48.0); HEMOGLOBIN 11.7 g/dL (12-16); IMMATURE GRANULOCYTES 0.5 % (0-5); LYMPHOCYTE ABS# 2.48 10x3/uL (1.18-3.74); LYMPHOCYTES 18.8 % (15-50); MCH 31.7 pg (26.0-34.0); MCHC 33.9 g/dL (31.0-37.0); MCV 93.5 fL (80.0-100.0); MEAN PLATELET VOLUME 8.3 fL (7.4-10.4); MONOCYTES 6.1 % (2-11); NEUTROPHIL ABS# 9.64 10x3/uL (1.56-6.13); NEUTROPHILS 72.9 % (40-80); RBC 3.69 10x6/uL (4.00-5.40); RDW 13.5 % (11.5-14.5); WBC 13.2 10x3/uL (4.8-10.8)
[2020-10-08 10:41] LABS: PLATELET COUNT 305 10x3/uL (130-400)
[2020-10-08 10:46] LABS: ANION GAP 11.3 mmol/L (8-16); CALCIUM 8.7 mg/dL (8.5-10.1); CARBON DIOXIDE 25.9 mmol/L (21.0-32.0); CREATININE - SERUM 1.1 mg/dL (0.6-1.3); POTASSIUM - SERUM 4.2 mmol/L (3.5-5.1)
[2020-10-08 10:51] LABS: ACETAMINOPHEN 3.1 ug/mL (10.0-30.0); ALBUMIN 2.6 g/dL (3.4-5.0); BILIRUBIN - TOTAL 0.19 mg/dL (0.2-1.3); MAGNESIUM - SERUM 1.9 mg/dL (1.8-2.4); PROTEIN - SERUM 5.5 g/dL (6.4-8.2)
[2020-10-08 11:12] LABS: NITRITE POSITIVE (NEGATIVE)
[2020-10-08 11:13] LABS: BILIRUBIN NEGATIVE (NEGATIVE); KETONE NEGATIVE (NEGATIVE); UROBILINOGEN NORMAL mg/dL (< 2)
[2020-10-08 11:14] LABS: BACTERIA MANY HPF (NONE SEEN); WHITE CELLS - URINE 25-50 HPF (0-4)
[2020-10-08 11:31] LABS: UDS - AMPHET NEGATIVE QUAL (NEGATIVE); UDS - BARB POSITIVE QUAL (NEGATIVE); UDS - BENZO POSITIVE QUAL (NEGATIVE)
[2020-10-08 11:32] LABS: UDS - COCAINE NEGATIVE QUAL (NEGATIVE); UDS - OPIATE POSITIVE QUAL (NEGATIVE); UDS - PCP NEGATIVE QUAL (NEGATIVE); UDS - THC NEGATIVE QUAL (NEGATIVE)
[2020-10-08 12:08] LABS: PROTIME 12.3 SECONDS (11.6-15.0)
[2020-10-08 12:09] LABS: INR 1.01 (0.85-1.17)
[2020-10-08 12:44] LABS: T4 THYROXIN - FREE 1.25 ng/dL (0.76-1.46)
--- NOTE | 2020-10-08 18:26 | NUR ---
WHEN I WENT TO GIVE HER HER IMDUR, SHE DENIED THAT SHE TOOK IT. PAGED DR. CASTRO. AWAITING CALL BACK.
--- NOTE | 2020-10-08 18:37 | NUR ---
DR. CASTRO CALLS BACK AND D/C'S IMDUR.
--- NOTE | 2020-10-08 20:27 | NUR ---
BEDSIDE REPORT RECIEVED @1900, PT WAS RESTING IN BED, AWAKE AND DROWSY, RE-OPRIENTED TO TIME OF DAY, PT ORIENTED TO SELF, PLACE AND SITUATION. PT ASSISTED TO BEDPAN AND UNABLE TO VOID OR HAVE BM, NO VOIDS TODAY PER CHART, ABD SOFT AND PT DENIES DISCOMFORT. PT ASSESSED AND HYPOTENSIVE DR CASTRO CALLED @2030 AND BP WITH SBP IN 70'S-80'S, MAP IN 50'S REPORTED, ORDER OBTAINED FOR LEVOPHED GTT, D/C LISINPRIL AND INCREASE NS TO 100ML/HR, DISCUSSED PT MOST RECENT LAB SHOWED NA @127 AND NS INFUSING @75 ML/HR AFTER 1 LITER NS BOLUS GIVEN IN ED, LABS IN AM, NO ADDITIONAL ORDERS AT THIS TIME. PT WITH CALL LIGHT WITHIN REACH, DENIES COMPLAINTS OR UNMET NEEDS AT THIS TIME.
--- NOTE | 2020-10-08 21:54 | NUR ---
pt with 20g PIV to Right forearm with narcan gtt and NS IVF infusing, 2nd PIV started to Right upper arm, 20g with 1 stick, good blood return noted, placed levophed and NS to right upper arm, narcan gtt infusing at greater then KVO to right forearm. will cont to monitor PIV sites and titrate levophed as needed.
[2020-10-09] VITALS (67 sets, daily range): BP systolic 75–141; BP diastolic 43–81; Ht 162.6 cm; Wt 51.0 kg
--- NOTE | 2020-10-09 02:12 | NUR ---
pt called and reported need to have BM, pt with large incont void, cleaned pt and placed on bedpan, pt able to have med side stool, stool hard and brown. pt given CHG bath and bath cloths used, pt declined to have hair washed at this time, gown and linens changed. bed low and locked, call light within reach, bed alarm active.
[2020-10-09 04:44] LABS: INR 1.29 (0.85-1.17); PROTIME 14.9 SECONDS (11.6-15.0)
[2020-10-09 04:52] LABS: ALBUMIN 2.2 g/dL (3.4-5.0); BILIRUBIN - TOTAL 0.16 mg/dL (0.2-1.3); CALCIUM 7.5 mg/dL (8.5-10.1); CARBON DIOXIDE 22.7 mmol/L (21.0-32.0); CREATININE - SERUM 0.9 mg/dL (0.6-1.3); PROTEIN - SERUM 4.9 g/dL (6.4-8.2)
[2020-10-09 05:13] LABS: POTASSIUM - SERUM 5.7 mmol/L (3.5-5.1)
[2020-10-09 05:47] LABS: BASOPHILS 0 % (0-2); EOSINOPHILS 0 % (0-7); IMMATURE GRANULOCYTES 0.4 % (0-5); LYMPHOCYTE ABS# 1.31 10x3/uL (1.18-3.74); LYMPHOCYTES 15.5 % (15-50); MCH 31.3 pg (26.0-34.0); MCHC 34.2 g/dL (31.0-37.0); MCV 91.6 fL (80.0-100.0); MEAN PLATELET VOLUME 8.3 fL (7.4-10.4); MONOCYTES 6.4 % (2-11); NEUTROPHIL ABS# 6.58 10x3/uL (1.56-6.13); NEUTROPHILS 77.7 % (40-80); PLATELET COUNT 244 10x3/uL (130-400); RBC 2.14 10x6/uL (4.00-5.40); RDW 13.3 % (11.5-14.5); WBC 8.5 10x3/uL (4.8-10.8)
[2020-10-09 05:48] LABS: HEMATOCRIT 19.6 % (36.0-48.0); HEMOGLOBIN 6.7 g/dL (12-16)
--- NOTE | 2020-10-09 06:50 | NUR ---
PT WITH CRITICAL HEMOGLOBIN 6.7, DR CASTRO CALLED, LABS ORDERED AND ORDER TO TRANSFUSE 2 UNITS AND RECHECK AFTER 2ND UNIT AND CALL WITH RESULTS.
--- NOTE | 2020-10-09 07:00 | NUR ---
REPORT RECEIVED. ASSESSMENT COMPLETE PER FLOW SHEET. REFER FOR FINDINGS. VSS
--- NOTE | 2020-10-09 08:10 | NUR ---
DR CASTRO AT BEDSIDE. NO NEW ORDRES
--- NOTE | 2020-10-09 08:30 | NUR ---
1ST U PRBC STARTED. VSS
--- NOTE | 2020-10-09 17:15 | NUR ---
PT ASSISTED TO BEDSIDE COMMODE. BLACK MAROON FORMED STOOL NOTED. DR CASTRO PAGED GIVEN UPDATE. NEW ORDERS REICEVED.
--- NOTE | 2020-10-09 17:21 | NUR ---
DR LAZARO GIVEN UDPATE. STATED TO CALL IF PT STATUS CHANGED, WOULD SEE PT IN AM.
[2020-10-09 17:50] LABS: BASOPHILS 0.1 % (0-2); EOSINOPHILS 0 % (0-7); IMMATURE GRANULOCYTES 0.3 % (0-5); LYMPHOCYTE ABS# 1.98 10x3/uL (1.18-3.74); LYMPHOCYTES 18.6 % (15-50); MCH 29.9 pg (26.0-34.0); MCHC 33.9 g/dL (31.0-37.0); MEAN PLATELET VOLUME 8.3 fL (7.4-10.4); MONOCYTES 6.8 % (2-11); NEUTROPHIL ABS# 7.91 10x3/uL (1.56-6.13); NEUTROPHILS 74.2 % (40-80); RDW 14.7 % (11.5-14.5)
[2020-10-09 18:03] LABS: HEMATOCRIT 27.1 % (36.0-48.0); HEMOGLOBIN 9.2 g/dL (12-16); PLATELET COUNT 180 10x3/uL (130-400); RBC 3.08 10x6/uL (4.00-5.40); WBC 10.7 10x3/uL (4.8-10.8)
--- NOTE | 2020-10-09 19:45 | NUR ---
BESIDE REPORT RECIEVED @1905, PT DONOVAN AND ORIENTED X4. PT SISTER AT BEDSIDE, PT CLEANED OF LARGE INCONT DARK BLACK/MAROON STOOL, NO RHODA BLOOD NOTED, PT BRIAN, ABLE TO ASSIST TO ROLL IN BED, DENIES COMPLAINTS OR UNMET NEEDS, CALL LIGHT WITHIN REACH. SEE ASSESSMENT AND GTT PER CHARTING.
[2020-10-09 20:29] LABS: HEMATOCRIT 21.6 % (36.0-48.0); HEMOGLOBIN 7.3 g/dL (12-16)
--- NOTE | 2020-10-09 20:54 | NUR ---
@2014, WENT TO RE-ASSESS PT AND GIVE PM MEDS, PT WITH EYES CLOSED BUT NOT RESPONSIVE, UPON STERNAL RUB PT SLOWLY RESPONDED WITH MILDLY SLURRED SPEECH, LEFT MOUTH AND EYE DROOP NOTED, PERRLA. PT ABLE TO ANSWER QUESTIONS WITH YES OR NO ANSWERS, UNABLE TO MOVE LEFT ARM OR LEG, RIGHT ARM AND LEG STRENGTH UNACHANGED. DR CASTRO NOTIFIED, CBC, CMP AND STAT HEAD CT ORDERED, DR CASTRO REQUEST NEXT OF KIN BE CALLED TO INQUIRE TO PT PREFERRED CODE STATUS. BLOOD OBTAINED AND PT TAKEN TO CT. ABLE TO CONTACT LIZ MURILLO, PT SISTER AND VERIFY PT WISHES TO BE DNR, 2ND RN VERIFIED PT SISTER STATED PT TO BE DNR, AND MD ORDER TO MAKE PT DNR. ALSO ORDER TO TANSFUSE 2 UNITS PRBC FOR HGB 7.3.
--- NOTE | 2020-10-09 21:15 | NUR ---
DR CASTRO UPDATED ON HEAD CT RESULTS, PT ABLE TO ANSWER QUESTIONS APPROPRIATELY AT THIS TIME, TORRES, CAREER GUIDANCE TECHNICIAN EQUAL, DORSAL FLEXATION EQUAL, PT ABLE TO SMILE, MILD LEFT EYE DROOP REMAINS. PT SISTER UPDATED ON PT CONDITION. 02 APPLIED FOR SP02 BELOW 90%. WILL CONT TO CLOSEY MONITOR. NO ADDITIONAL ORDERS OBTAINED FROM DR CASTRO AT THIS TIME.
[2020-10-09 21:50] LABS: ANION GAP 15.2 mmol/L (8-16); CALCIUM 7.3 mg/dL (8.5-10.1); CARBON DIOXIDE 19.1 mmol/L (21.0-32.0); CREATININE - SERUM 0.9 mg/dL (0.6-1.3)
[2020-10-09 21:51] LABS: POTASSIUM - SERUM 4.3 mmol/L (3.5-5.1)
[2020-10-10] VITALS (34 sets, daily range): BP systolic 73–168; BP diastolic 40–110
--- NOTE | 2020-10-10 01:30 | NUR ---
PIV TO RIGHT FA INFILTRATED, NS FLUSH AFTER 1ST UNIT PRNC COMPLETED INFUSING AT TIME, IV DC'D AND WARM COMPRESS APPLIED. ATTEMPTED TO RE-SITE PIV X3 UNSUCCESSFUL, HOUSE SUPRIVISER ATTEMPTED AND WAS ALSO UNSUCCESSFUL. PT REFUSEDANY ADDITIONAL ATTEMPTS. UNABLE TO GIVE 2ND UNIT OF BLOOD AT THIS TIME.
--- NOTE | 2020-10-10 02:30 | NUR ---
PT AAOX4, COMPLAINTS OF BEING IN PAIN AND WANTING TO DECLINE FURTHER CARE AND BE MADE HOSPICE VOICED PER PT. PT EMERGANCY CONTACT AAKASH AND LIZ CONTACTED, DR CASTRO NOTIFED AND AGREED TO MAKE PT COMFORT CARE AND CONSULT HOSPICE, MORPHINE 6 MG IVP Q2H PRN FOR PAIN ORDERED.
--- NOTE | 2020-10-10 03:34 | NUR ---
PT EMERGANCY CONTACT AAKASH AT BEDSIDE. PT DENIES COMPLAINTS OR UNMET NEEDS AT THIS TIME. HOSPICE NOTIFIED OF CONSULT. WILL CONT TO INFUSE LEVOPHED PER PT AND FAMILY REQUEST AT THIS TIME.
--- NOTE | 2020-10-10 05:38 | NUR ---
PT DECLINING AM MEDS, PRN MORPHINE AND ZOFRAN GIVEN. WILL CONT TO MONITOR.
--- NOTE | 2020-10-10 06:12 | NUR ---
PT ASSESSED, NO STOOL OR URINE ASSESSED AT THIS TIME. PT REQUEST LEVOPHED BE TURNED OFF, ONE OF PT EMERGANCY CONTACT LIZ IN ROUTE, AND AAKASH AT BEDSIDE AND IN CONTACT WITH PT SON VIA TELEPHONE. LEVOPHED DECREASED TO 5MCG/KG/MIN. WILL CONT TO MONITOR AND GIVE REPORT TO ONCOMING NURSE.
--- NOTE | 2020-10-10 06:37 | NUR ---
ALESSIO AT BEDSIDE VISITING WITH PT, PT AWAKE, REQUESTS LEVOPHED BE STOPPED, PT COMFORT CARE, LEVOPHED STOPPED AT THIS TIME.
--- NOTE | 2020-10-10 11:45 | NUR ---
HOSPICE NURSE DID ROUND AND SPOKE TO PT AND HER CAREGIVER FRIENDS. HOSPICE DENIED ADMIT TO HOSPICE. DR BAUMAN SPOKE TO PT AND HER FRIENDS AT [facility] AND TO K[facility].
[2020-10-11] VITALS: BP 166/82
--- NOTE | 2020-10-11 00:07 | NUR ---
1929- IV SITE LEAKING WITH BLOOD ADMIN, IV STARTED TO RIGHT FOREARM. 2199- IV TO R FOREARM INFILTRATED, IV START TO L UPPER ARM RIGHT ABOVE AC X 1 ATTEMPT. Krysten ADKINS RN
[2020-10-11 01:00] VITALS: BP 184/76
[2020-10-11 02:00] VITALS: BP 166/98
[2020-10-11 03:00] VITALS: BP 111/53
[2020-10-11 04:00] VITALS: BP 116/83
--- NOTE | 2020-10-11 05:54 | NUR ---
0400- BP DECREASED TO 52/28-FLUID BOLUS STARTED AND LEVO RESTARTED AT 5 MCG INCREASED LEVO 1MCG Q 5 MIN TO INCREASE PRESSURE. PT WITH LARGE BLACK TARRY BM NOTED AND ABDOMINAL CRAMPING. 0435-52/25 0440-57/32 0445-49/29 0450-66/39 0455-71/34 0500-74/38 0505-80/33 BP UNABLE TO READ AT 0510- NEXT READING AT 0515 54/[address] CASTRO. INSTRUCTED TO KEEP PATIENT COMFORTABLE. CONTACTED AAKASH-EMERGENCY CONTACT TO INFORM OF CHANGE IN CONDITION. FLUIDS AND LEVOPHED STOPPED AT THIS TIME. PATIENT COMFORTABLE AND WITHOUT NEEDS. Krysten ADKINS RN
--- NOTE | 2020-10-11 06:45 | NUR ---
0615- GAVE PATIENT BED BATH, CHANGED LINEN. 0635- FAMILY FRIEND AT BEDSIDE. INFORMED OF CHANGES AND GAVE UPDATE ON PLAN. STANLEY FREY
--- NOTE | 2020-10-11 06:54 | NUR ---
0652- NO HEART TONES OR BREATH SOUNDS ON AUSCULTATION- DR CASTRO CONTACTED AND IN ROUTE TO FACILITY TO PRONOUCE. Krysten ADKINS RN
--- NOTE | 2020-10-11 08:56 | NUR ---
0715-CATHY NOTIFIED OF PT PER POLICY-FAMILY/FRIEND AT BEDSIDE-SIGNED FOR PERSONAL BELONGINGS BEING TAKEN HOME-LEFT HEATING PAD/ THOMAS AND DENTURES 0745-DR CASTRO AT BEDSIDE AND PRONOUNCED PT-NURSE REMAINS ON PHONE WITH CATHY-CONFIRMED WITH DR CASTRO NO STRETCH TSE PRESENT ASKED BY MORGAN ASSOCIATE 0800-REMOVED IV'S AND TURNED OFF O2-PLACED IN FLAT SUPINE 0832-NOTIFIED [facility] 0840-NOTIFIED NURSE CARBON DIOXIDE OPERATOR
--- NOTE | 2020-10-11 09:51 | NUR ---
RELEASED TO [facility]
[2020-10-12 14:09] LABS: FOLATE RBC - HEMATOCRIT 16.9 % (34.0-46.6)
== END 2020-10-11 09:52 | DRG 811 ==
LOC: D.ER 09:54 → D.ICU 12:51 → OBSVTIME 12:51 → D.ICU 13:53 → D.CVICU 10-10 18:03
PROVIDERS: Emergency Medicine; ADMIT Family Medicine; ATTEND Family Medicine
DX: D64.9 Anemia, unspecified (principal); I63.9 Cerebral infarction, unspecified; E43 Unspecified severe protein-calorie malnutrition; E87.1 Hypo-osmolality and hyponatremia; N30.00 Acute cystitis without hematuria; K92.1 Melena; Z68.1 Body mass index [BMI] 19.9 or less, adult; T50.901A Poisoning by unspecified drugs, medicaments and biological substances, accidental (unintentional), initial encounter; I10 Essential (primary) hypertension; F17.200 Nicotine dependence, unspecified, uncomplicated; J43.9 Emphysema, unspecified; K59.03 Drug induced constipation; M19.90 Unspecified osteoarthritis, unspecified site; F41.9 Anxiety disorder, unspecified; K58.1 Irritable bowel syndrome with constipation; Z66 Do not resuscitate; E78.5 Hyperlipidemia, unspecified